=== PATIENT | female | born 1970 | race Caucasian/White ===

== ENCOUNTER 2017-07-11 21:21 | Emergency (ER) | payer OTHER ==
[~2017-07-11] VITALS: Ht 162.6 cm; Wt 136.1 kg
--- NOTE | ~2017-07-11 | EKG ---
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: JOHN : 1970 Requested By: Ella Tovar Order Number: [id number] MD: Saul Alonzo Measurements Intervals Starke Rate: 94 P: 28 OK: 145 QRS: 60 QRSD: 84 T: 52 QT: 353 QTc: 442 Interpretive Statements Sinus rhythm Low voltage, precordial leads Baseline wander in lead(s) V1 Compared to ECG 08/22/2011 17:28:48 Sinus arrhythmia no longer present Electronically Signed On 07-12-2017 7:59:06 CDT by Saul Alonzo [email or web address] <ELECTRONICALLY SIGNED> By: Saul Alonzo MD, [facility] 07/12/17 0759 24 24 Saul Alonzo MD, [facility] /EPI
[~2017-07-11 21:21] MED LIST: ALBUTEROL2.5 MG/0.5 IH; AMOXICILLIN875 MG PO; CYMBALTA60 MG PO; FLEXERIL PO; GLUCOPHAGE500 MG PO; IBUPROFEN 800800 M1 PO; MECLIZINE HCL25 M1 PO; METFORMIN PO; VENTOLIN HFA INH8 GM IH
[2017-07-11] MEDS ORDERED: PREDNISONE 20 M20 MG (22:24)
[2017-07-11] MEDS ORDERED: QVAR8.7 G1 INH (22:24)
[2017-07-11 22:53] LABS: HEMATOCRIT 39.2 % (37.0-47.0); HEMOGLOBIN 13.2 gm/dL (12.0-15.0); MANUAL DIFF NO; MCV 84.1 fL (80.0-100.0); RBC 4.65 mil/uL (4.20-5.00); WBC 9.7 thou/uL (4.0-11.0)
[2017-07-11 22:54] LABS: ABSOLUTE NEUTROPHILS 7.3 thou/uL (1.4-8.2); BASOPHILS 0.6 % (0.0-2.0); EOSINOPHILS 0.1 % (0.0-3.0); MCH 28.4 pg (26.0-34.0); MCHC 33.8 % (28.0-37.0); PLATELET COUNT 297 thou/uL (150-400); POLYS 75.3 % (36.0-66.0); RDW 14.1 % (10.5-14.5)
[2017-07-11 23:02] LABS: ANION GAP 11 mmol/L (7-16); BUN 15 mg/dL (7-18); CALCIUM 9.4 mg/dL (8.5-10.1); CHLORIDE 104 mmol/L (98-107); CO2 24 mmol/L (21-32); GLUCOSE 167 mg/dL (74-106); POTASSIUM 4.3 mmol/L (3.5-5.1); SODIUM 139 mmol/L (136-145)
[2017-07-11 23:12] LABS: ALBUMIN 3.4 g/dL (3.4-5.0); ALKALINE PHOSPHATASE 98 U/L (46-116); SGOT 22 U/L (15-37); SGPT 38 U/L (30-65); TOTAL BILIRUBIN 0.2 mg/dL (<0.1-1.0); TOTAL PROTEIN 8.1 g/dL (6.4-8.2); TROPONIN-I < 0.04 ng/mL (<0.04-0.07)
[2017-07-12] MEDS ORDERED: TRAMADOL 50 MG50 MG PO (01:09)
[2017-07-12] MEDS ORDERED: ZPAK PO (01:09)
[2017-07-12] MEDS ORDERED: TESSALON PERLE100 MG PO (01:34)
[2017-07-12 01:58] VITALS: BP 137/78
== END 2017-07-12 01:59 | disposition home or self-care (01) ==
LOC: ER 21:21
PROVIDERS: Physician Assistant
DX: J20.9 Acute bronchitis, unspecified (principal); J45.901 Unspecified asthma with (acute) exacerbation; R10.11 Right upper quadrant pain; F17.210 Nicotine dependence, cigarettes, uncomplicated; Z90.49 Acquired absence of other specified parts of digestive tract; Z98.890 Other specified postprocedural states

== ENCOUNTER 2018-04-11 05:27 | Day surgery (SDC) | payer OTHER ==
[~2018-04-11] VITALS: Ht 162.6 cm; Wt 136.5 kg
--- NOTE | ~2018-04-11 | O ---
[facility] [place] [address] OPERATIVE REPORT Name: GOPI COLIN Room #: [facility]P [facility].#: [id number] Admission: 04/11/18 Attend Phys: Yobany Olivarez MD Discharge: 04/11/18 Date of : 68 Report #: [id number] THIS REPORT FOR: //name// CC: Navin Olivarez DATE OF SERVICE: 04/11/2018 SERVICE: Orthopedics. FACILITY: [place]. SURGEON: Yobany Olivarez MD BLUEPRINT ASSEMBLER: None. PREOPERATIVE DIAGNOSES: 1. Right knee pain. 2. Right knee medial meniscus root tear. POSTOPERATIVE DIAGNOSES: 1. Right knee pain. 2. Right knee medial meniscus root tear. 3. Right knee tricompartmental grade 3 chondromalacia 4. Right knee small inner rim white-white lateral meniscus tear. PROCEDURES: 1. Right knee arthroscopy with partial medial and lateral meniscectomy. 2. Right knee arthroscopic tricompartmental chondroplasty. COMPLICATIONS: None. DRAINS: None. SPECIMENS: None. FINDINGS: 1. Grade 3 chondromalacia affecting all compartments. 2. Right radial tear of the medial meniscus root, near complete with intact red-red fibers, treated with simple debridement. 3. Small inner rim white-white tear of the lateral meniscus, treated with simple debridement. HISTORY OF PRESENT ILLNESS: The patient is a 47-year-old female who has been having right knee pain for some time. She had an acute injury that resulted in a posterior horn medial meniscus tear that remained symptomatic despite [facility] [address] [place] [address] OPERATIVE REPORT Name: GOPI COLIN Room #: DEP [facility] M.R.#: [id number] Admission: 04/11/18 Attend Phys: Yobany Olivarez MD Discharge: 04/11/18 Date of : 68 Report #: [id number] conservative measures and she was actually requiring cane usage due to persistent pain. We had several discussions about the optimal treatment course and based on normal appearing x-rays and what was overall healthy appearing cartilage on the MRI as best that we could tell, elected to proceed with medial meniscus root repair versus debridement, favoring a repair if the environment was favorable for repair. Risks, benefits, alternatives and indications for surgery were discussed with her in detail. Risks include but not limited to pain, bleeding, infection, injury to nerves or blood vessels, persistent pain despite surgical intervention, failure of any repairs or reconstruction, progression of any preexisting chondral injury, stiffness, need for further surgery including eventual arthroplasty as well as complications related to anesthesia such as stroke, heart attack, pulmonary complications, thromboembolic disease and . Despite these risks, she wished to proceed. PROCEDURE IN DETAIL: After the right leg was correctly identified as the operative extremity, the patient was taken to the operating room where general anesthesia was induced without complication. Right leg was prepped & draped in the standard sterile fashion after a touniquet was applied to the right thigh. Time-out procedure was performed. Prophylactic antibiotics were administered at the appropritae time. Esmarch was utilized & the tourniquet was inflated to 350 mmHg. Anterolateral viewing and anteromedial working portals were established in typical fashion. Diagnostic arthroscopy revealed grade 3 chondromalacia throughout. This was more pronounced than the MRIs had indicated. This involves the patella, primarily in the patellofemoral joint, although there was some chondromalacia of the trochlea as well, and then both the medial and lateral femoral condyle had chondromalacia as did the medial tibial plateau. There was a tear of the posterior horn and the root with significant amount of synovitis in the knee in general, but in particular at the medial meniscus root and this was approximately 75-80% complete as the portion at the meniscal capsular junction remained intact. There is evidence of an attempted healing response of the more inner rim portion of this, but it was ineffective and there is still loose fragment of posterior horn. A biter was used to perform partial medial meniscectomy and then the shaver was used to complete the contouring medially. Attention was then turned towards the lateral compartment where overall the lateral compartment looked healthy. There was limited chondromalacia, which was treated with chondroplasty with a shaver and then the lateral meniscus, which had good coverage of the lateral tibial plateau was evaluated. There was just some minor fraying of the inner rim within the white-white zone and the shaver was used to resect the loose frayed segment, leaving at least 95% of meniscal volume intact. On the medial side 85-90% of meniscal volume was left intact. Scope was then placed in patellofemoral joint and chondroplasty was performed [address] [address] OPERATIVE REPORT Name: GOPI COLIN Room #: DEP [facility] Rosales#: [id number] Admission: 04/11/18 Attend Phys: Yobany Olivarez MD Discharge: 04/11/18 Date of : 68 Report #: [id number] here with a shaver. The portals were switched and the chondroplasty was completed. The debris was lavaged out of the knee, the arthroscopic effusion was drained, instruments were removed from the knee and a total of 40 mL of 0.5% Marcaine was infiltrated in the soft tissues for postoperative pain control. Sterile dressings applied. The patient was then awakened from anesthesia and taken to recovery room in stable condition. There were no complications and all counts were reported as correct. <ELECTRONICALLY SIGNED> By: Yobany Olivarez MD 04/12/18 0637 1819 1848 Yobany Olivarez MD /mikel
[~2018-04-11 05:27] MED LIST changes: +MOBIC15 MG PO; +PREDNISONE 20 M20 MG; +PRILOSEC 20 MG20 MG PO; +QVAR8.7 G1 INH; +TESSALON PERLE100 MG PO; +TRAMADOL 50 MG50 MG PO; +ZPAK PO
[2018-04-11 07:30] VITALS: BP 143/90
[2018-04-11 09:44] VITALS: BP 143/90
== END 2018-04-11 10:38 | disposition home or self-care (01) ==
LOC: OR 05:27 → TBA 05:27 → OR 09:54
DX: S83.281A Other tear of lateral meniscus, current injury, right knee, initial encounter (principal); S83.241A Other tear of medial meniscus, current injury, right knee, initial encounter; M94.261 Chondromalacia, right knee; J45.909 Unspecified asthma, uncomplicated; K21.9 Gastro-esophageal reflux disease without esophagitis; F17.210 Nicotine dependence, cigarettes, uncomplicated; Z90.49 Acquired absence of other specified parts of digestive tract; Z79.899 Other long term (current) drug therapy; Z98.890 Other specified postprocedural states; Y99.8 Other external cause status; X58.XXXA Exposure to other specified factors, initial encounter; Y93.89 Activity, other specified; Y92.89 Other specified places as the place of occurrence of the external cause
CPT/HCPCS: 50010; 50101; 50405; 51038; 51445; 54170; 56527; 62110; 62900; 64037; 70005